=== PATIENT | male | born 1985 | race Caucasian/White ===

== ENCOUNTER 2017-02-28 12:22 | Emergency (ER) | payer OTHER ==
[~2017-02-28] VITALS: Ht 182.9 cm; Wt 112.0 kg
[~2017-02-28 12:22] MED LIST: AMOXICILLIN875 M1 PO; AUGMENTIN 875 M1 TAB PO; CIPRO500 M1 PO; HYDROCODON-ACE1 EAC2 PO; METRONIDAZOLE500 M1 PO; TYLENOL #31 TAB PO
[2017-02-28 12:29] VITALS: BP 137/75
[2017-02-28] MEDS ORDERED: PERCOCET 5-3251 EACH PO (13:13)
[2017-02-28] MEDS ORDERED: PREDNISONE10 M2 PO (13:13)
[2017-02-28] MEDS ORDERED: AMOXICILLIN500 M2 PO (13:14)
--- NOTE | 2017-02-28 13:14 | ED HAND/WRIST INJURY COMPLAINT ---
History of Present Illness General Chief Complaint: General Adult Stated Complaint: SWOLLEN HANDS Source: patient, old records, friend Exam Limitations: no limitations Vital Signs & Intake/Output Vital Signs & Intake/Output Vital Signs Date Time Temp Pulse Resp B/P B/P Pulse O2 O2 Flow FiO2 Mean Ox Delivery Rate 02/28 1229 97.5 67 20 137/75 97 Room Air Allergies Coded Allergies: shrimp (ANAPHYLAXIS 11/30/15) Reconcile Medications Amoxicillin 500 MG CAPSULE 1 CAP PO TID staph infection Oxycodone HCl/Acetaminophen (Percocet 5-325 MG Tablet) 5 MG-325 MG TABLET 1-2 TAB PO Q6P PRN PAIN Prednisone 10 MG TABLET 1 TAB PO DAILY CONTACT DERMAITIS TAKE 3 TABS FOR 3 DAYS THEN TAKE 2 TABS FOR 3 DAYS THEN TAKE 1 TAB FOR 3 DAYS Triage Note: 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 HAS BEEN USING [employer] WORKING HANDS ON THEM BUT YESTERDAY AFTER WORK HIS HANDS BECAME SWOLLEN, DRY, CRACKED AND SCABBED Triage Nurses Notes Reviewed? 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 Patient states that occasionally he gets a break out in his hand but over the past 3 days it is on both hands and it is very painful. The pain is a burning sensation to both hands. The pain increases when he makes a fist. He also worsens when he is working with his hands. There is no radiation. There are no fevers or chills. At its worst the pain is 10 out of 10. Patient denies any recent injury. Past History Travel History Traveled to [place] past 21 day No Medical History Any Pertinent Medical History? 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 No Review of Systems Review of Systems Constitutional: Reports: no symptoms. Respiratory: Reports: no symptoms. Cardiovascular: Reports: no symptoms. Skin: Reports: see HPI. Neurological/Psychological: Reports: no symptoms. Immunologic/Allergic: Reports: no symptoms. Physical Exam Physical Exam General Appearance: well developed/nourished, alert, awake, anxious, mild distress Head: atraumatic Eyes: Bilateral: PERRL, EOMI. Cardiovascular/Respiratory: normal breath sounds, normal peripheral pulses, regular rate/rhythm, no respiratory distress Hand Left: swelling, tender, CONTACT DERMATITIS Hand Right: swelling, tender, CONTACT DERMATITIS Neurologic/Tendon: normal sensation, normal motor functions Progress Differential Diagnosis: CONTACT DERMATITIS Plan of Care: Current Medications Sig/Oly Start time Last Medication Dose Stop Time Status Admin Oxycodone/ 2 TAB ONCE ONE 02/28 1314 UNVr Acetaminophen 02/28 131 (Percocet) Prednisone 60 MG ONCE ONE 02/28 1314 UNVr 02/28 131 Departure Departure Disposition: HOME OR SELF CARE Condition: Stable Clinical Impression Primary Impression: Contact dermatitis Qualifiers: Contact dermatitis type: irritant Contact dermatitis trigger: unspecified trigger Qualified Code: L24.9 - Irritant contact dermatitis, unspecified cause Referrals: Patient Has No Primary Care Dr (PCP/Family) Additional Instructions: TAKE STEROIDS PRESCRIBED IF NO IMPROVEMENT IN 2 DAYS, START THE ANTIBIOTIC RETURN FOR ANY CONCERNS Departure Forms: Customer Survey General Discharge Information Prescriptions: Current Visit Scripts Prednisone 1 TAB PO DAILY #18 TAB TAKE 3 TABS FOR 3 DAYS THEN TAKE 2 TABS FOR 3 DAYS THEN TAKE 1 TAB FOR 3 DAYS Oxycodone HCl/Acetaminophen (Percocet 5-325 MG Tablet) 1-2 TAB PO Q6P PRN PAIN #20 TAB Amoxicillin 1 CAP PO TID #30 CAP
== END 2017-02-28 13:37 ==
LOC: ERH 12:22
DX: L25.9 Unspecified contact dermatitis, unspecified cause (principal)